=== PATIENT | female | born 2000 | race Caucasian/White ===

== ENCOUNTER 2022-11-23 08:20 | Inpatient (IN) | payer OTHER ==
[2022-11-23] MEDS ORDERED: Ondansetron 4 MG/2 ML SDV IVPUSH PRN (10:20)
[2022-11-23] MEDS ORDERED: Lidocaine 1% 50 ML MDV INJECT PRN (10:20)
[2022-11-23] MEDS ORDERED: Misoprostol 200 MCG Tab PO PRN (10:20)
[2022-11-23] MEDS ORDERED: Sodium Chloride 0.9% 20 ML SDV IV PRN (10:20)
[2022-11-23] MEDS ORDERED: Butorphanol 1 MG/ML SDV IVPUSH PRN (10:20)
[2022-11-23] MEDS ORDERED: Tranexamic Acid 1,000 MG in Sodium Chloride 0.9% 100 ML IV PRN (10:20)
[2022-11-23] MEDS ORDERED: Sodium Chloride 0.9% 2.5 ML Syringe FLUSH PRN (10:20)
[2022-11-23] MEDS ORDERED: Water For Irrigation,Sterile 1,000 ML Container IRR PRN (10:20)
[2022-11-23] MEDS ORDERED: Carboprost Tromethamine 250 MCG/1 ML Amp IM PRN (10:20)
[2022-11-23] MEDS ORDERED: Sodium Chloride 0.9% 10 ML Syringe FLUSH PRN (10:20)
[2022-11-23] MEDS ORDERED: Methylergonovine 0.2 MG/1 ML Amp IM PRN (10:20)
[2022-11-23] MEDS ORDERED: Lactated Ringers 1,000 ML IV SCH (10:30)
[2022-11-23] MEDS ORDERED: Oxytocin/0.9 % Sodium Chloride 30 UNIT/500 ML BAG IV SCH (10:30)
[2022-11-23] MEDS ORDERED: ceFAZolin 2 GM in Premix Bag 1 BAG IV SCH (11:00)
[2022-11-23] MEDS ORDERED: ceFAZolin 2 GM in Sodium Chloride 0.9% 50 ML IV ONE (11:00)
[2022-11-23] MEDS ORDERED: Carboprost Tromethamine 250 MCG/1 mL Vial ONE (15:52)
[2022-11-23] MEDS ORDERED: Bisacodyl 10 MG Supp RECTAL PRN (16:11)
[2022-11-23] MEDS ORDERED: Ibuprofen 800 MG Tab PO PRN (16:11)
[2022-11-23] MEDS ORDERED: Docusate Sodium 100 MG Cap PO PRN (16:11)
[2022-11-23] MEDS ORDERED: Acetaminophen 500 MG Tab PO PRN ×2 (16:11)
[2022-11-23] MEDS ORDERED: Witch Hazel Medicated Pads 40/Jar TOP PRN (16:11)
[2022-11-23] MEDS ORDERED: Ibuprofen 400 MG Tab PO PRN (16:11)
[2022-11-23] MEDS ORDERED: oxyCODONE 5 MG Tab PO PRN (16:11)
[2022-11-23] MEDS ORDERED: Lanolin 100% Cream 7 GM Tube TOP PRN (16:11)
[2022-11-23] MEDS ORDERED: Benzocaine/Menthol 20%-0.5% Spray 78 GM Cannister TOP PRN (16:11)
[2022-11-23] MEDS ORDERED: Tranexamic Acid 1,000 MG/10 ML Vial ONE (17:41)
[2022-11-23] MEDS ORDERED: ceFAZolin 1 GM in Premix Bag 1 BAG IV ONE ×4 (19:00)
[2022-11-24 05:59] LABS: CARBON DIOXIDE,CO2 24.9 mmol/L (21.0-32.0); POTASSIUM,K 3.9 mmol/L (3.5-5.1)
== END 2022-11-25 14:23 | disposition home or self-care (01) | DRG 806 ==
LOC: MW.OBCHECK 08:20 → MW.OB 11:07 → OBSVTOIN 15:19 → MW.OB 11-24 00:22
PROVIDERS: ADMIT Obstetrics & Gynecology; ATTEND Obstetrics & Gynecology
PROC: 10E0XZZ Delivery of Products of Conception, External Approach (ICD-10-PCS; principal; 2022-11-23)
PROC: 0KQM0ZZ Repair Perineum Muscle, Open Approach (ICD-10-PCS; 2022-11-23)
DX: O36.63X0 Maternal care for excessive fetal growth, third trimester, not applicable or unspecified (principal); O72.1 Other immediate postpartum hemorrhage; Z37.0 Single live birth; O99.824 Streptococcus B carrier state complicating childbirth; L40.9 Psoriasis, unspecified; O99.72 Diseases of the skin and subcutaneous tissue complicating childbirth; O70.1 Second degree perineal laceration during delivery; Z88.0 Allergy status to penicillin; Z3A.38 38 weeks gestation of pregnancy
CPT/HCPCS: 36415; 59025; 59409; 80053; 82803; 84112; 85025; 85027; 85384; 85610; 86592; 86850; 86900; 86901; A9270-GY; J0595; J0690; J2001; J2210; J2590; J3490; J7050; J7120

== ENCOUNTER 2025-02-22 01:49 | Inpatient (IN) | payer OTHER ==
[2025-02-22] MEDS ORDERED: Ibuprofen 800 MG Tab PO PRN (03:07)
[2025-02-22] MEDS ORDERED: oxyCODONE 5 MG Tab PO PRN (03:07)
[2025-02-22] MEDS ORDERED: Docusate Sodium 100 MG Cap PO PRN (03:07)
[2025-02-22] MEDS ORDERED: Acetaminophen 500 MG Tab PO PRN (03:07)
[2025-02-22] MEDS: Oxytocin/0.9 % Sodium Chloride 30 UNIT/500 ML BAG IV SCH (03:24)
[2025-02-22] MEDS ORDERED: Lactated Ringers 1,000 ML IV SCH (03:30)
[2025-02-22 03:59] LABS: BASOPHILS ABSOLUTE AUTO 0.01 K/uL (0.00-0.20); BASOPHILS PERCENT AUTO 0.1 % (0.0-1.0); EOSINOPHILS ABSOLUTE AUTO 0.01 K/uL (0.00-0.45); EOSINOPHILS PERCENT AUTO 0.1 % (0.0-6.0); HEMATOCRIT 36.4 % (37.0-47.0); HEMOGLOBIN 12.2 g/dL (12.0-16.0); IMMATURE GRAN ABSOLUTE AUTO 0.03 K/uL (0.00-0.05); IMMATURE GRAN PERCENT AUTO 0.2 % (0.0-0.4); LYMPHOCYTES ABSOLUTE AUTO 0.85 K/uL (1.00-4.80); LYMPHOCYTES PERCENT AUTO 6.4 % (24.0-44.0); MEAN CORPUSCULAR HEMOGLOBIN 30.2 pg (28.0-32.0); MEAN CORPUSCULAR HGB CONC 33.5 g/dL (32.0-36.0); MEAN CORPUSCULAR VOLUME 90.1 fL (83.0-99.0); MEAN PLATELET VOLUME 10.5 fL (9.4-12.3); MONOCYTES ABSOLUTE AUTO 0.47 K/uL (0.00-0.80); MONOCYTES PERCENT AUTO 3.6 % (0.0-8.0); NEUTROPHILS ABSOLUTE AUTO 11.84 K/uL (1.80-7.70); NEUTROPHILS PERCENT AUTO 89.6 % (41.0-71.0); PLATELET COUNT,PLT 197 K/uL (150-400); RED BLOOD CELL COUNT 4.04 M/uL (4.10-5.30); WHITE BLOOD CELL COUNT,WBC 13.21 K/uL (3.9-11.3)
[2025-02-22] MEDS: Lanolin 100% Cream 7 GM Tube TOP PRN (05:00)
[2025-02-22] MEDS: Witch Hazel Medicated Pads 40/Jar TOP PRN (05:00)
[2025-02-22] MEDS: Benzocaine/Menthol 20%-0.5% Spray 78 GM Cannister TOP PRN (07:39)
[2025-02-23 05:42] LABS: HEMOGLOBIN 12.6 g/dL (12.0-16.0)
== END 2025-02-24 12:30 | disposition home or self-care (01) | DRG 776 ==
LOC: UNDOADMOB 01:49 → MW.OB 01:49 → OBSVTOIN 01:50 → MW.OB 01:50
PROVIDERS: ADMIT Obstetrics & Gynecology; ATTEND Obstetrics & Gynecology
DX: Z39.0 Encounter for care and examination of mother immediately after delivery (principal); Z37.0 Single live birth; O48.0 Post-term pregnancy; O99.02 Anemia complicating childbirth; O99.824 Streptococcus B carrier state complicating childbirth; Z88.0 Allergy status to penicillin; Z3A.40 40 weeks gestation of pregnancy; O62.3 Precipitate labor; Z79.899 Other long term (current) drug therapy
CPT/HCPCS: 36415; 85014; 85018; 85025; 86592; 99221; 99231; 99238; A9270-GY; J2590